=== PATIENT | female | born 1980 | race Caucasian/White ===

== ENCOUNTER 2016-09-12 14:06 | Emergency (ER) | payer OTHER ==
[~2016-09-12] VITALS: Ht 149.9 cm; Wt 63.5 kg
[2016-09-12] MEDS ORDERED: METHIMAZOLE 1010 MG PO (14:31)
[2016-09-12] MEDS ORDERED: METOPROLOL SUCC50 M1 PO (14:31)
--- NOTE | 2016-09-12 14:45 | Urgent Treatment Center Report ---
See Addendum History of Present Issue Date/Time Seen by Provider 09/12/16 1414 Visit Reason Pt arrived:Walked Presenting Problem:PT STATES ROCK FELL ON LEFT FOOT SATURDAY CREATING A LACERATION. STATES PAIN WHEN BEARING WEIGHT Location if Accident:Home Onset of symptoms date/time:09/08/16/ or onset unknown for:MEDICAL HX UNKNOWN Have you (or family members/close friends) recently traveled outside the [place]? N If Yes, where/when: Have you had exposure to infectious disease within the past month? TB? Other? Specify: c/o left foot pain continuing. Dropped a large [place]/yard rock on left foot Saturday, 4 days ago. Loaded it into the back of the atv gator but didn't realize the bed was unlocked. bed flipped up and rock fell on top of foot. Pain and bleeding immediately. Cleaned up and has been applying ice. Pain radiates to great toes at times. Described as dull ache, currently 3/10. Pain, swelling, tingling feeling when left to dangle too long. Improved with elevation. Laceration scabbed over. No drainage, redness, heat. "Was larger but already getting smaller". Last tetanus unknown. Pt declines updated tetanus vaccine today. Source patient Exam Limitations no limitations ALLERGIES Coded Allergies: clindamycin (09/12/16) Home Medications Reported Medications Methimazole (Methimazole 10 Mg (Tapazole)) 5 MG PO DAILY Metoprolol Succinate Xl (Metoprolol ER 50MG) 50 MG PO DAILY History Medical History General CAD? No Angina: No [place]: No Hypertension? No Hyperlipidemia? No CHF? No DVT? No PE? No COPD? No Asthma? No Anemia? No GERD? No Gastric ulcers? No GI Bleed? No Hernia? No Thyroid Problems? No Hypothyroidism? No CVA? No Seizures? No Diabetes? No Renal Insuffiency? No UTI? Yes Stones? No BPH? No GB Disease: No Nephritic Syndrome? No Asplenia? No Hepatitis? No Sickle Cell Disease? No Arthritis? No Migraines? No Cataracts? No Glaucoma? No MRSA? No HIV? No TB? No Anxiety? No Depression? No Cancer? No Immunization HX DT/Tetanus 5-10 Years Ago Surgical Hx Previous Surgery?Y BLADDER TUCK Exploratory Laparoscopy [employer] Hx LMP 2 Weeks Ago Family History Family HX Diabetes No CAD Yes Hypertension Yes Hyperlipidemia No Cancer Yes TB No Social History Smoking Hx Smoker: Never Smoker Tobacco: No Packs/day N/A Alcohol Alcohol: No Review of Systems All Other Systems Reviewed and Negative Constitutional denies fever, denies malaise, denies weakness Musculoskeletal see HPI, denies other (toe, ankle, leg pain) Skin see HPI Psychiatric/Neurological see HPI Physical Exam Vital Signs Vital Signs Date Time Temp Pulse Resp B/P Pulse O2 O2 Flow FiO2 Ox Delivery Rate 09/12 1447 99.1 84 18 140/83 100 09/12 1425 99.1 84 18 140/83 100 General Appearance normal appearance Respiratory Status No: respiratory distress. Cardiovascular no peripheral edema Peripheral Pulses Pulses normal Yes (pedal bilateral) Back gait abnormality (slight limp favoring lt foot) Extremities normal range of motion (left digits, ankle), no inflammation left foot/ankle/digits, laceration top of lt foot, see skin, moderate tenderness generalized throughout midfoot and radiating distally through left metatarsal Neurologic alert, no motor/sensory deficits Skin laceration top center of left mid foot, 2.5cmx0.25cm, scabbed, healthy pink new skin surrounding scab approx 0.25cm wide, no sign of infection, no drainage, surrounding area tender Medical Decision Making LABS/Meds/Orders Pt receiving controlled substance in ED? No Results/Orders Orders Procedure Date/time Status STABILIZE JOINT 09/12 1446 Active FOOT-LT-3 VIEWS 09/12 1416 Active Departure Departure Time of Disposition 1435 Disposition DC Home or Self Care(routine) Clinical Impression Primary Impression: Sprain of left foot Qualifiers: Encounter type: initial encounter Qualified Code: S93.602A - Unspecified sprain of left foot, initial encounter Secondary Impressions: Laceration of left foot Qualifiers: Encounter type: initial encounter Qualified Code: S91.312A - Laceration without foreign body, left foot, initial encounter Condition STABLE Referrals Lalo Arredondo MD Follow up IMMEDIATELY for new or worsening symptoms OR no noticeable improvement over the next 3-5 days. May want to discuss referral or further imaging. Patient Instructions DI for Foot Sprain, DI for Minor Laceration, How To Perform RICE (Rest, Ice, Compress, Elevate) Additional Instructions * weight bearing as tolerated w/ hard sole shoe. * Rest * ice 15-20 mins 3-4 times a day * Placido wrap for support and swelling unless in shower. Be sure not too tight but not too loose either * Elevate as discussed as much as possible to help reduce swelling and therefore , pain * Ibuprofen every 6 hours as needed for pain and inflammation. If you need something more, you can take tylenol every 4 hours as needed as long as your primary care provider has told you it is ok to take both. * Discussed tetanus vaccine. Pt declined. Laceration improved and already much smaller without any sign of infection. Encouraged to Monitor closely.FU immediately for new or worsening symptoms ( including but not limited to redness , swelling, red streaking, fever, chills). Follow up IMMEDIATELY for new or worsening symptoms OR no noticeable improvement over the next 3-5 days. Discharge Counseling Counseled pt/family regarding diagnosis, test results, medications/RX, home care, follow up needs at 1511
[2016-09-12 14:47] VITALS: BP 140/83
--- NOTE | 2016-09-12 17:11 | RADIOLOGY REPORT PS360 ---
FOOT-LT-3 VIEWS HISTORY: Posttraumatic pain with laceration rock fell on top of foot Saturday, pain and laceration ORDERING PHYSICIAN: GIAN SIMONS APRN PATIENT AGE: 36 years COMPARISON: None FINDINGS: No fracture or dislocation. No lytic or blastic change. There is normal mineralization.. The joint spaces are well-preserved. No significant degenerative/arthritic changes. No erosive changes evident. IMPRESSION: Negative left foot, no acute finding
--- OUTSIDE RECORDS SUMMARY | 2016-09-18 07:14 | External Medical Summary Rpt ---
Author Author [employer] Organization [employer] Address Unknown Phone Unavailable Purpose Continuity of Care Document - through 2016
--- OUTSIDE RECORDS SUMMARY | 2016-09-18 07:14 | External Medical Summary Rpt ---
Author Author , Organization [employer] Address Unknown Phone Unavailable Purpose Continuity of Care Document - through 2016
--- OUTSIDE RECORDS SUMMARY | 2016-09-18 07:15 | External Medical Summary Rpt ---
Demographics Preferred Language Vincentian Marital Status Unknown Jewish Affiliation Unknown Race Unknown Ethnic Group Unknown Author Author , Organization [employer] Address Unknown Phone Unavailable Purpose Continuity of Care Document - through 2016 Immunization No patient found.
--- OUTSIDE RECORDS SUMMARY | 2016-09-18 07:15 | External Medical Summary Rpt ---
Demographics Preferred Language Hong Konger Marital Status Unknown Rastafarian Affiliation Unknown Race Unknown Ethnic Group Unknown Author Author , Organization [employer] Address Unknown Phone Unavailable Purpose Continuity of Care Document - through 2016 Immunization No patient found.
== END 2016-09-12 14:49 | disposition home or self-care (01) ==
LOC: UTC 14:06
DX: S93.602A Unspecified sprain of left foot, initial encounter (principal); S91.312A Laceration without foreign body, left foot, initial encounter; W22.8XXA Striking against or struck by other objects, initial encounter; Y92.099 Unspecified place in other non-institutional residence as the place of occurrence of the external cause

== ENCOUNTER 2017-01-27 11:36 | Emergency (ER) | payer OTHER ==
[~2017-01-27] VITALS: Ht 149.9 cm; Wt 72.6 kg
[~2017-01-27 11:36] MED LIST: METHIMAZOLE 1010 MG PO; METOPROLOL SUCC50 M1 PO
--- NOTE | 2017-01-27 12:31 | Urgent Treatment Center Report ---
History of Present Issue Date/Time Seen by Provider 01/27/17 1222 Visit Reason Pt arrived:Walked Presenting Problem:PT C/O SHARP PAIN IN LT SIDE OF HER RIBS WHEN SHE BREATHES OR COUGH X2 DAYS Location if Accident: Onset of symptoms date/time:/ or onset unknown for:MEDICAL HX UNKNOWN Have you (or family members/close friends) recently traveled outside the [place]? N If Yes, where/when: Have you had exposure to infectious disease within the past month? TB? Other? Specify: Patient state that she was at home on Saturday and she took a deep breath in and began having pain in her left lower lung/rib States that she is unsure if it is her lung or her rib hurting but she feels like it may be her lung. States that now she hurts when she takes a deep breath or moves quickly ALLERGIES Coded Allergies: clindamycin (09/12/16) Home Medications Reported Medications Methimazole (Methimazole 10 Mg (Tapazole)) 5 MG PO DAILY Metoprolol Succinate Xl (Metoprolol ER 50MG) 50 MG PO DAILY History Medical History General CAD? No Angina: No [place]: No Hypertension? No Hyperlipidemia? No CHF? No DVT? No PE? No COPD? No Asthma? No Anemia? No GERD? No Gastric ulcers? No GI Bleed? No Hernia? No Thyroid Problems? No Hypothyroidism? No CVA? No Seizures? No Diabetes? No Renal Insuffiency? No UTI? Yes Stones? No BPH? No GB Disease: No Nephritic Syndrome? No Asplenia? No Hepatitis? No Sickle Cell Disease? No Arthritis? No Migraines? No Cataracts? No Glaucoma? No MRSA? No HIV? No TB? No Anxiety? No Depression? No Cancer? No Immunization HX DT/Tetanus 5-10 Years Ago Surgical Hx Previous Surgery?Y BLADDER TUCK Exploratory Laparoscopy Family History Family HX Diabetes No CAD Yes Hypertension Yes Hyperlipidemia No Cancer Yes TB No Social History Smoking Hx Smoker: Never Smoker Tobacco: No Packs/day N/A Alcohol Alcohol: No Review of Systems All Other Systems Reviewed and Negative Constitutional denies chills, denies fever Respiratory denies shortness of breath, denies wheezing Cardiovascular denies chest pain, denies palpitations, other Comment Pain in left lower lung when she takes a deep breath or coughs Physical Exam Vital Signs Vital Signs Date Time Temp Pulse Resp B/P Pulse O2 O2 Flow FiO2 Ox Delivery Rate 01/27 1149 97.8 110 20 139/85 100 General Appearance normal appearance, WD/WN, no apparent distress Respiratory Status Yes: trachea midline, chest symmetrical, non tender chest. No: respiratory distress. Lung Sounds bilateral: normal breath sounds, lungs clear. Cardiovascular normal exam, regular rate/rhythm, no peripheral edema Neurologic alert, normal exam, oriented x 3 Comments Complains of pain in left lung/rib area when she takes deep breath, denies injury, denies recent illness Medical Decision Making LABS/Meds/Orders Pt receiving controlled substance in ED? No Results/Orders Orders Procedure Date/time Status CHEST(2 VIEWS-NOT PORTABLE) 01/27 1223 Active XRAY/CT/US XRAY/CT/US XRAY chest XR interpretation by reviewed by me Xray Results no infiltrates Departure Departure Time of Disposition 1256 Disposition DC Home or Self Care(routine) Clinical Impression Primary Impression: Painful cough Condition STABLE Referrals Family doctor Patient Instructions DI for Rib Contusion Additional Instructions Follow up with family doctor if pain continues Return if needed Take medication as prescribed you was given Motrin 800mg today that will help with pain and also as an anti-inflamatory. You was also given a few muscle relaxers to help relax your muscles and make moving and breathing easier Discharge Counseling Counseled pt/family regarding diagnosis, test results, home care, follow up needs Prescriptions Current Visit Scripts Cyclobenzaprine Hcl (Flexeril) 10 MG PO TID #15 TAB Ibuprofen (Ibuprofen 800MG) 800 MG PO QIDP PRN pain #30 TAB at 1306
[2017-01-27] MEDS ORDERED: FLEXERIL10 MG PO (13:06)
[2017-01-27] MEDS ORDERED: IBUPROFEN800 MG PO (13:06)
[2017-01-27 13:28] VITALS: BP 139/85
--- NOTE | 2017-01-27 14:01 | RADIOLOGY REPORT PS360 ---
CHEST(2 VIEWS-NOT PORTABLE) INDICATION: Congestion COMPARISON: PA and lateral chest 03/12/2016 FINDINGS: The lung merlos are well expanded and appear clear of infiltrate. The cardiomediastinal silhouette and vascularity are normal. The costophrenic angles are clear. The bony thorax is normal. IMPRESSION: Normal chest.
--- OUTSIDE RECORDS SUMMARY | 2017-02-01 18:30 | External Medical Summary Rpt | CCD ---
Author Author [employer] Address Unknown Phone [email or web address] Purpose Continuity of Care Document - through 2016
--- OUTSIDE RECORDS SUMMARY | 2017-02-01 18:30 | External Medical Summary Rpt | CCD ---
Demographics Preferred Language Danish Marital Status Unknown Bahai Affiliation Unknown Race Unknown Ethnic Group Unknown Author Author , [facility] [employer] Address Unknown Phone Immunization No patient found.
--- OUTSIDE RECORDS SUMMARY | 2017-02-01 18:30 | External Medical Summary Rpt ---
Author Author [facility] [place], [employer] Organization [employer] Address Unknown Phone Unavailable
--- OUTSIDE RECORDS SUMMARY | 2017-02-01 18:30 | External Medical Summary Rpt | CCD ---
Demographics Preferred Language Romanian Marital Status Unknown Adventism Affiliation Unknown Race Unknown Ethnic Group Unknown Author Author , [facility] KATHLEEN Address Unknown Phone Immunization No patient found.
--- OUTSIDE RECORDS SUMMARY | 2017-02-01 18:30 | External Medical Summary Rpt | CCD ---
Author Author [facility] Address Unknown Phone Purpose Continuity of Care Document - through 2016
== END 2017-01-27 13:29 | disposition home or self-care (01) ==
LOC: UTC 11:36
DX: R05 Cough (principal); R10.12 Left upper quadrant pain; Z88.1 Allergy status to other antibiotic agents